=== PATIENT | male | born 1970 | race Caucasian/White ===

== ENCOUNTER 2018-02-13 18:49 | Emergency (ER) | payer OTHER ==
[2018-02-13] MEDS ORDERED: NORMAL SALINE 1,000 ML IV ONE ×2 (18:56→19:02)
[2018-02-13] MEDS ORDERED: MECLIZINE HCL 25 MG TABLET PO ONE ×2 (18:56→19:52)
[2018-02-13] MEDS ORDERED: chlorproMAZINE HCL 20 MG in NORMAL SALINE 50 ML IV ONE (19:08)
--- NOTE | 2018-02-13 19:08 | ERNOTE ---
Dizziness ER Record Date of Service: 02/13/18 Presenting Symptoms: dizziness Time Seen by Provider: 02/13/18 18:53 Source: patient Exam Limitations: no limitations Immunizations: IMMUNIZATION HX Immunizations Up to Date Yes Allergies/Adverse Reactions: Allergies Allergy/AdvReac Type Severity Reaction Status Date / Time Penicillins Allergy Verified 02/13/18 18:56 Home Medications: HOME MEDICATIONS NK [No Home Medication] 02/13/18 [Last Taken Unknown] - History of Present Illness Narrative: Pt. comes in with c/o dizziness for 2 hours that is uncontrollable and is causing severe, uncontrollable, vomiting as well. Pt. has had recent diarrhea for three days but denies any fever, SOB, CP, or alleviating factors but states taht movement exacerbates the pain. Timing and Duration: sudden onset, lasted greater than 3 hrs Noted on awakening:: No Severity: max: severe Severity: currently: severe Associated Symptoms: Present: nausea, vomiting, light headedness. Absent: hearing loss, ringing/roaring in ear, headache, weakness, numbness, sweating, sense of confusion Sense of movement: Present: none Decreased ability to stand/walk:: Present: cannot walk, cannot stand. Absent: weak, difficult Usually:: Present: walks w/o assistance Modifying Factors - (Improves): Reports: nothing Modifying Factors - (Worsens): Reports: changing position, movement of head Prior Treament: Denies: recently seen, treated by physician, recently hospitalized, similar symptoms before, currently on antibiotics Review of Systems - Review of Systems Constitutional: Present: no symptoms reported. Absent: fever, chills, weakness , fatigue, malaise EYE: Present: blurred vision, double vision, vision changes. Absent: eye pain, eye discharge ENT: Present: no symptoms reported. Absent: nose congestion, nasal drainage, sore throat Respiratory: Present: no symptoms reported. Absent: shortness of breath, cough , wheezing Cardiology: Present: no symptoms reported. Absent: chest pain, palpitations, edema Gastrointestinal/Abdominal: Present: nausea, vomiting, diarrhea. Absent: abdominal pain Genitourinary: Present: no symptoms reported. Absent: frequency, decreased urinary output Musculoskeletal: Present: no symptoms reported. Absent: back pain, neck pain, joint pain Skin: Present: no symptoms reported. Absent: rash, change in color Neurological: Present: dizziness/light-headedness, weakness. Absent: headache, numbness, tingling All Other Systems: All systems neg except as marked - Patient's Past Medical History Patient History - Medical: No pertinent hx Patient History - Cardiac/Respiratory: No pertinent hx Patient History - Cancer: No Hx of Cancer Patient History - Surgical Procedures: Back Surgery, Orthopedic Patient History - Other: None - Social History Living Situations: home Psych History: No pertinent hx Smoking Status: Never smoker Alcohol Use: occasionally Drug Use: none - Immunizations Immunizations Up to Date: Yes Physical Exam - Physical Exam General Appearance: Present: wd/wn, no apparent distress, lethargic Head Exam: Present: normal inspection, no evidence of injury, no tenderness w palpation Eye Exam: PERRL: bilateral, Abnormal EOM: bilateral - pt. unable to track eyes drift abnormally and not symmetrical Ears, Nose, Throat: Present: normal ENT inspection, normal pharynx Neck: Present: normal inspection, nontender, supple, full range of motion. Absent: lymphadenopathy (R), lymphadenopathy (L), tender lateral, tender posterior midline Respiratory: Present: no respiratory distress, normal breath sounds, no accessory muscle use, chest nontender, lungs clear. Absent: crackles, rales, rhonchi, wheezing Cardiovascular/Chest: Present: regular rate, rhythm, no murmur, normal peripheral pulses Gastrointestinal/Abdominal: Present: normal bowel sounds, nontender, nondistended, soft, no organomegaly Back Exam: Present: normal inspection Extremity Exam: Present: normal inspection Neurological Exam: Present: oriented, normal mood/affect, no motor/sensory deficits, other - unable to complete HINTS exam, Rhomberg, or [id number] due to severity of dizziness.. Absent: paint mixer machine II-XII nml as tested, normal cerebellar test, motor weakness Skin Exam: Present: normal color, warm/dry. Absent: pallor, skin rash ED Progress - Date and Time Seen: Date and Time: 02/13/18 21:[address] Perry and although infarct looks remote on CT and pt. has 4 /4 strength all extremities and has no difficulty with breathing, speaking, or cognition; pt. has uncontrollable vomiting and dizziness and his eyes are not tracking and pt. is very lethargic and does not have a hx of CVA...we are concerned that CVA is more recent and that he needs neurosurgery. 02/13/18 21:37 As this could be a posterior CVA or extension of a R temporal CVA contacted stroke team at [facility] per family request. 02/13/18 21:[address] Guillen who is concerned for cerebral artery occlusion vs aneurism as well as previously mentioned possible diagnosis and would like pt. to transfer by air to them but denies any further orders at this time. - Results and Orders Patient's Lab Results:: I have reviewed the patient's lab results. Results and Orders: Laboratory Results - last 24 hr 02/13/18 02/13/18 02/13/18 19:20 19:20 19:20 WBC 10.3 RBC 4.22 L Hgb 14.2 Hct 42.6 MCV 100.9 H MCH 33.6 H MCHC 33.3 RDW 12.3 Plt Count 348 MPV 8.7 Immature Gran % (Auto) 0.50 H Immature Gran # (Auto) 0.05 H Neutrophils % 79.3 H Lymphocytes % 13.0 L Monocytes % 5.7 Eosinophils % 1.1 Basophils % 0.4 Nucleated RBC % 0.0 Neutrophils # 8.2 H Lymphocytes # 1.34 L Monocytes # 0.6 Eosinophils # 0.1 Absolute Basophils 0.0 Sodium 142 Plasma Sodium 143 H Potassium 3.0 L Chloride 102 Carbon Dioxide 26.2 Anion Gap 16.8 H BUN 19 Creatinine 1.29 Est GFR (Non-Af Amer) 64 BUN/Creatinine Ratio 14.7 Random Glucose 146 H Calcium 9.1 Calcium Adj for Albumin 8.7 Total Bilirubin 0.2 AST 22 ALT 47 Alkaline Phosphatase 90 Ammonia Less than 17.0 Troponin I Total Protein 7.8 Albumin 4.1 TSH Ethyl Alcohol 7.0 02/13/18 19:50 WBC RBC Hgb Hct MCV MCH MCHC RDW Plt Count MPV Immature Gran % (Auto) Immature Gran # (Auto) Neutrophils % Lymphocytes % Monocytes % Eosinophils % Basophils % Nucleated RBC % Neutrophils # Lymphocytes # Monocytes # Eosinophils # Absolute Basophils Sodium Plasma Sodium Potassium Chloride Carbon Dioxide Anion Gap BUN Creatinine Est GFR (Non-Af Amer) BUN/Creatinine Ratio Random Glucose Calcium Calcium Adj for Albumin Total Bilirubin AST ALT Alkaline Phosphatase Ammonia Troponin I Less than 0.017 Total Protein Albumin TSH 2.008 Ethyl Alcohol - Vital Signs Patient's Vital Signs:: I have reviewed the patient's vital signs. Vital Signs: Vital Signs 02/13/18 02/13/18 18:51 19:01 Temperature 36.2 C L Pulse Rate 63 57 L Respiratory 16 14 Rate Blood Pressure 126/65 122/64 O2 Sat by Pulse 93 93 Oximetry - EKG EKG: NSR EKG read: Reviewed by me EKG Comments: Left axis deviation interp by Dr Perry - CT/Ultrasound CT/Ultrasound Narrative: CT head with remote area of infarct R temporal lobe. No evidence of intraparynchamal or acute infarct - Progress/Reassessment Chief Complaint: Dizziness Progress:: Unchanged Departure Clinical Impression: Cerebral artery occlusion, Dizziness Altered mental status Qualifiers: Altered mental status type: somnolence Qualified Code(s): R40.0 - Somnolence - Departure Disposition: Short Term Hospital Inpatient Condition: Serious
[2018-02-13 19:24] LABS: Hematocrit 42.6 % (42.0-52.0); Hemoglobin 14.2 gm/dL (13.5-18.0); Mean Cell Volume 100.9 fl (78-100); Mean Corpuscular Hemoglobin 33.6 pg (27-31); Mean Corpuscular Hgb Conc 33.3 g/dl (32-36); Mean Platelet Volume 8.7 fl (8-11.3); Neutrophil # 8.2 K/mm3 (1.3-6.0); Neutrophil % 79.3 % (42-75.0); Platelet Count 348 K/mm3 (150-450); Red Blood Count 4.22 M/mm3 (4.7-6.0); Red Cell Distribution Width 12.3 % (11.5-14.0); White Blood Count 10.3 K/mm3 (4.0-10.5)
[2018-02-13 19:38] LABS: Albumin * 4.1 gm/dl (3.4-5.0); BUN/Creatinine Ratio 14.7 (9.0-21.6); Bilirubin, Total 0.2 mg/dL (0.0-1.1); Ca. Corrected For Albumin 8.7 mg/dL (8.4-10.2); Calcium * 9.1 mg/dL (7.9-10.9); Total Protein 7.8 gm/dL (6.2-8.2)
[2018-02-13 19:42] LABS: Anion Gap 16.8 mmol/L (6.8-13.8); Carbon Dioxide 26.2 mmol/L (24-32.6)
[2018-02-13] MEDS ORDERED: MECLIZINE HCL 25 MG TABLET ONE (19:53)
[2018-02-13] MEDS ORDERED: POTASSIUM CHLORIDE 20 MEQ TABLET.SA PO ONE (20:04)
[2018-02-13 20:28] LABS: TSH * 2.008 uIU/mL (0.358-3.74); Troponin I Less than 0.017 ng/ml (0.00-0.10)
[2018-02-13] MEDS ORDERED: POTASSIUM CHLORIDE 20 MEQ TABLET.SA ONE (20:30)
[2018-02-13] MEDS ORDERED: ONDANSETRON HCL/PF 2 MG/ML VIAL IV ONE (20:37)
[2018-02-13] MEDS ORDERED: ONDANSETRON HCL/PF 2 MG/ML VIAL ONE (20:38)
[2018-02-13 21:53] LABS: Urine Bilirubin Negative (NEGATIVE); Urine Ketone Negative (NEGATIVE); Urine Nitrite Negative (NEGATIVE); Urine Protein 15 mg/dL (NEGATIVE); Urine Urobilinogen Normal (NORMAL); Urine pH 6.5 pH (5.0-7.0)
[2018-02-13] MEDS ORDERED: POTASSIUM CHLORIDE IN WATER 100 ML IV SCH (22:00)
[2018-02-13 22:03] LABS: Urine Appearance Clear (CLEAR); Urine Bacteria TRACE; Urine Blood 5 /ul (NEGATIVE); Urine Color Yellow; Urine RBC None Seen /hpf (0-5); Urine WBC TRACE /hpf (0-5)
[2018-02-13 22:16] LABS: Cocaine Ur Negative (NEGATIVE); Urine Barbiturate Negative (NEGATIVE); Urine Benzodiazepines Negative (NEGATIVE); Urine Opiates Negative (NEGATIVE); Urine PCP Negative (NEGATIVE); Urine THC Negative (NEGATIVE)
[2018-02-13 23:25] VITALS: BP 131/82
== END 2018-02-13 22:52 | disposition short-term general hospital (02) ==
LOC: ER 18:49
CPT/HCPCS: 36415; 70450; 80053; 80307; 80320; 81001; 82140; 84443; 84484; 85025; 93005; 96361; 96365; 96367; 96375; 99285; G0479; G0481; J2405

== ENCOUNTER 2020-05-16 20:45 | Inpatient (IN) ==
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
[2020-05-16 21:06] LABS: Hematocrit 44.2 % (42.0-52.0); Hemoglobin 14.4 gm/dL (13.5-18.0); Mean Cell Volume 100.2 fl (78-100); Mean Corpuscular Hemoglobin 32.7 pg (27-31); Mean Corpuscular Hgb Conc 32.6 g/dl (32-36); Mean Platelet Volume 9.3 fl (8-11.3); Neutrophil # 4.2 K/mm3 (1.3-6.0); Neutrophil % 62.6 % (42-75.0); Platelet Count 292 K/mm3 (150-450); Red Blood Count 4.41 M/mm3 (4.7-6.0); Red Cell Distribution Width 11.8 % (11.5-14.0); White Blood Count 6.8 K/mm3 (4.0-10.5)
[2020-05-16 21:27] LABS: Albumin * 3.6 gm/dl (3.4-5.0); Anion Gap 12.9 mmol/L (6.8-13.8); BUN/Creatinine Ratio 10.6 (9.0-21.6); Bilirubin, Total 0.5 mg/dL (0.0-1.1); Ca. Corrected For Albumin 9.3 mg/dL (8.4-10.2); Calcium * 9.3 mg/dL (7.9-10.9); Carbon Dioxide 27.3 mmol/L (24-32.6); Potassium 3.2 mmol/L (3.4-4.6); Total Protein 7.8 gm/dL (6.2-8.2)
[2020-05-16] MEDS ORDERED: ENOXAPARIN SODIUM 100 MG/ML SYRG SC ONE (23:41)
[2020-05-16] MEDS ORDERED: ENOXAPARIN SODIUM 30 MG/0.3 ML SYRG SC ONE (23:42)
[2020-05-17] MEDS ORDERED: ENOXAPARIN SODIUM 100 MG/ML SYRG SC SCH (09:00)
[2020-05-17] MEDS: ENOXAPARIN SODIUM 60 MG/0.6 ML SYRG SC SCH ×2 (09:16→20:22)
[2020-05-17] MEDS: FLUoxetine HCL 20 MG CAPSULE PO SCH (09:16)
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
[2020-05-17] MEDS: ACETAMINOPHEN 325 MG TABLET PO PRN (17:03)
[2020-05-18] MEDS: ACETAMINOPHEN 325 MG TABLET PO PRN ×5 (01:37→22:05)
[2020-05-18 07:22] LABS: Hemoglobin 13.7 gm/dL (13.5-18.0); Mean Cell Volume 99.3 fl (78-100); Mean Corpuscular Hemoglobin 32.4 pg (27-31); Mean Corpuscular Hgb Conc 32.6 g/dl (32-36); Mean Platelet Volume 9.1 fl (8-11.3); Neutrophil % 68.3 % (42-75.0); Platelet Count 333 K/mm3 (150-450); Red Blood Count 4.23 M/mm3 (4.7-6.0); Red Cell Distribution Width 11.7 % (11.5-14.0); White Blood Count 10.2 K/mm3 (4.0-10.5)
[2020-05-18 07:41] LABS: BUN/Creatinine Ratio 8.7 (9.0-21.6); Carbon Dioxide 28.9 mmol/L (24-32.6); Potassium 3.6 mmol/L (3.4-4.6)
[2020-05-18 07:42] LABS: Albumin * 3.1 gm/dl (3.4-5.0); Anion Gap 12.7 mmol/L (6.8-13.8); Ca. Corrected For Albumin 9.2 mg/dL (8.4-10.2); Calcium * 8.8 mg/dL (7.9-10.9); Total Protein 7.3 gm/dL (6.2-8.2)
[2020-05-18] MEDS: FLUoxetine HCL 20 MG CAPSULE PO SCH (08:38)
[2020-05-18] MEDS: ENOXAPARIN SODIUM 60 MG/0.6 ML SYRG SC SCH ×2 (08:39→21:14)
[2020-05-18 11:25] LABS: Urine Bilirubin Negative (NEGATIVE); Urine Blood 250 /ul (NEGATIVE); Urine Ketone Negative (NEGATIVE); Urine Nitrite Negative (NEGATIVE); Urine Protein 30 mg/dL (NEGATIVE); Urine Specific Gravity <=1.005 SP.GR. (1.005-1.030); Urine pH 6.5 pH (5.0-7.0)
[2020-05-18 11:41] LABS: Urine Appearance Slightly Cloudy (CLEAR); Urine Color Yellow
[2020-05-18 11:42] LABS: Urine RBC >50 /hpf (0-5); Urine WBC TRACE /hpf (0-5)
[2020-05-18 11:43] LABS: Urine Bacteria 1+
--- NOTE | 2020-05-18 13:11 | PN ---
Subjective - Date and Time Seen Date: 05/18/20 Time: 13:00 Subjective Narrative: Angel Mills has had an uneventful night. Unfortunately he continues to desaturate with minor exertion such as standing and walking a few steps. Complains of difficulty taking a deep breath. He also spiked fevers couple times earlier this morning. A CBC shows white count has climbed to 10,800 up from 4900. There is a predominance of neutrophils. The urinalysis has moderate amount of blood and some urobilinogen and 1+ bacteria. Chemistries show liver enzymes are elevated but the bilirubin is normal. Blood and urine cultures have been set up. I am considering changing him from Lovenox to Eliquis or Xarelto. His chest x-ray shows the patchy infiltrates have improved. His respiratory difficulties are most likely from the multi focal emboli to the lungs. Objective - Review of Systems Generalized/Overall Review: Reports: Weakness, Fatigue EENTM: Reports: No Symptoms Reported Respiratory: Reports: Cough, Shortness of Breath, Other - Difficulty taking a deep breath Cardiac: Reports: No Symptoms Reported. Denies: Chest Pain Abdominal: Reports: No Symptoms Reported Genitourinary Symptoms: Reports: No Symptoms Reported Musculoskeletal Complaints: Reports: No Symptoms Reported Neurological: Reports: No Symptoms Reported Skin: Reports: No Symptoms Reported Endocrine: Reports: No Symptoms Reported - Vitals Vitals: Last Vital Signs Temp 37.6 C 05/18/20 10:30 Pulse 85 05/18/20 10:30 Resp 18 05/18/20 10:30 BP 118/65 05/18/20 10:30 Pulse Ox 98 05/18/20 10:30 - Abnormal Lab Findings Abnormal Lab Findings: Abnormal Lab Results 05/18/20 05/18/20 05/18/20 Range/Units 07:00 07:00 11:05 RBC 4.23 L (4.7-6.0) M/mm3 MCH 32.4 H (27-31) pg Immature Gran # (Auto) 0.04 H (0.000-0.0310) K/mm3 Lymphocytes % 18.4 L (20-51) % Monocytes % 11.6 H (0.0-9) % Neutrophils # 7.0 H (1.3-6.0) K/mm3 Monocytes # 1.2 H (0.0-1.0) k/mm3 BUN/Creatinine Ratio 8.7 L (9.0-21.6) AST 59 H (0-48) U/L ALT 92 H (19-67) U/L Alkaline Phosphatase 245 H (50-170) U/L Albumin 3.1 L (3.4-5.0) gm/dl Urine Protein 30 H (NEGATIVE) mg/dL Urine Blood 250 H (NEGATIVE) /ul Urine Urobilinogen 2.0 H (NORMAL) EU/dl Urine RBC >50 H (0-5) /hpf Urine Bacteria 1+ H (NONE) - EKG/Xray Findings EKG: NSR, other - EKG now appears normal EKG read: Interp. by me XRAY: chest Interpretation: Reviewed by me - Exam Constitutional: Present: Alert, Oriented x3, Cooperative, Well developed, Well nourished, No distress ENT Exam: Present: normal ENT inspection, hearing grossly normal, pharynx normal, TMs normal Neck: Present: non-tender, full range of motion, supple Breasts: Present: Exam deferred Respiratory: Present: chest non-tender, decreased breath sounds, expiration (prolonged). Absent: wheezing Cardiovascular/Chest: Present: normal peripheral pulses, regular rate, rhythm, no chest tenderness, no edema, no gallop, no JVD, no murmur, no rub Abdomen: Present: Normal bowel sounds, soft, nontender, nondistended, no rebound tenderness, no hepatospenomegaly, no masses /Rectal: Present: Exam deferred Extremity: Present: normal range of motion, non-tender, normal inspection, no pedal edema, no calf tenderness, normal capillary refill Skin Exam: Present: normal color, warm/dry, no cyanosis Lymphatic: Present: no adenopathy Neurologic: Present: colorer II-XII nml as tested Appearance: Present: appropriate appearance Eye contact: Present: cooperative, good eye contact, normal speech, avoids eye contact Thoughts: Present: normal thought pattern, no apparent hallucination Assessment/Plan Plan Narrative: 1. Consider changing to Eliquis or Xarelto 2. Add Combivent inhaler 1 puff 4 times daily 3. Start O2 weaning as tolerated with keeping O2 sats equal to or greater than 92% 4. Progress activity as tolerated 5. Start Levaquin 500 mg daily 6. Urine and blood cultures have been set up 7. Repeat morning lab - Problems/Diagnosis (1) COVID-19 Problem: Acute (2) Pulmonary embolism Problem: Acute Qualifiers: Pulmonary embolism type: multiple subsegmental (without acute cor pulmonale) Qualified Code(s): I26.94 - Multiple subsegmental pulmonary emboli without acute cor pulmonale (3) Febrile illness, acute Problem: Acute (4) Abnormal liver function tests Problem: Acute
[2020-05-18] MEDS: LEVOFLOXACIN 750 MG TABLET PO SCH (13:21)
[2020-05-18] MEDS: IPRATROPIUM/ALBUTEROL SULFATE 120 PUFF INHALER IH SCH ×2 (13:22→19:20)
[2020-05-18] MEDS ORDERED: INHALER, ASSIST DEVICES 1 EACH SPACER MC ONE (13:30)
[2020-05-19] MEDS: IPRATROPIUM/ALBUTEROL SULFATE 120 PUFF INHALER IH SCH ×4 (00:51→19:20)
[2020-05-19 07:09] LABS: Hemoglobin 13.5 gm/dL (13.5-18.0); Mean Cell Volume 98.6 fl (78-100); Mean Corpuscular Hemoglobin 31.7 pg (27-31); Mean Corpuscular Hgb Conc 32.1 g/dl (32-36); Mean Platelet Volume 9.3 fl (8-11.3); Neutrophil # 8.4 K/mm3 (1.3-6.0); Neutrophil % 74.5 % (42-75.0); Platelet Count 353 K/mm3 (150-450); Red Blood Count 4.26 M/mm3 (4.7-6.0); Red Cell Distribution Width 11.6 % (11.5-14.0); White Blood Count 11.2 K/mm3 (4.0-10.5)
[2020-05-19 07:18] LABS: Albumin * 2.8 gm/dl (3.4-5.0); BUN/Creatinine Ratio 7.9 (9.0-21.6); Bilirubin, Total 1.1 mg/dL (0.0-1.1); Ca. Corrected For Albumin 9.4 mg/dL (8.4-10.2); Calcium * 8.8 mg/dL (7.9-10.9); Potassium 3.5 mmol/L (3.4-4.6); Total Protein 7.4 gm/dL (6.2-8.2)
[2020-05-19] MEDS: ACETAMINOPHEN 325 MG TABLET PO PRN ×2 (07:33→17:35)
[2020-05-19 07:49] LABS: Anion Gap 15.9 mmol/L (6.8-13.8); Carbon Dioxide 24.6 mmol/L (24-32.6)
[2020-05-19] MEDS: FLUoxetine HCL 20 MG CAPSULE PO SCH (09:06)
[2020-05-19] MEDS: ENOXAPARIN SODIUM 60 MG/0.6 ML SYRG SC SCH (09:07)
[2020-05-19] MEDS: LEVOFLOXACIN 750 MG TABLET PO SCH (10:13)
[2020-05-19] MEDS ORDERED: BISACODYL 5 MG TABLET.DR PO ONE ×2 (17:51→19:17)
[2020-05-19] MEDS ORDERED: FLUoxetine HCL 20 MG CAPSULE PO ONE (18:19)
--- NOTE | 2020-05-19 18:36 | PN ---
Subjective - Date and Time Seen Date: 05/19/20 Time: 17:45 Subjective Narrative: Demar had a good night and slept fairly well. This morning he felt well enough to get up and actually took a shower with his oxygen on and did fairly well with that. He has had a good day until this evening when he spiked a low-grade temperature and is feeling flushed and not feeling well at all. We started incentive spirometry last night and it makes him gag some but I think he should continue using it because it forces his lungs to expand. It is essentially the only difference between yesterday and today. This morning's lab work shows a white count has gone up a little to 14,300 but the differential is unremarkable. Chemistries are unremarkable. Sed rate was 99. There was a question about why I started levofloxacin. He is has started spiking fevers, he has an elevating white count which is up to 11,200 this morning. There is a predominance of leukocytes. The chest x-ray had shown some interval improvement. The urinalysis had blood and some white cells present. U rine and blood cultures have been set up and to this point there is no growth. He is now 2 weeks out from being diagnosed with COVID-19 and so I elected to start a broad-spectrum antibiotic. Objective - Review of Systems Generalized/Overall Review: Reports: Weakness, Fever, Malaise EENTM: Reports: No Symptoms Reported Respiratory: Reports: Cough, Shortness of Breath Cardiac: Reports: Chest Pain Abdominal: Reports: No Symptoms Reported Genitourinary Symptoms: Reports: No Symptoms Reported Musculoskeletal Complaints: Reports: No Symptoms Reported Neurological: Reports: No Symptoms Reported Skin: Reports: No Symptoms Reported Endocrine: Reports: No Symptoms Reported - Vitals Vitals: Last Vital Signs Temp 36.9 C 05/19/20 13:44 Pulse 93 05/19/20 14:00 Resp 18 05/19/20 13:44 BP 136/89 05/19/20 13:44 Pulse Ox 99 05/19/20 13:44 - Abnormal Lab Findings Abnormal Lab Findings: Abnormal Lab Results 05/19/20 05/19/20 05/19/20 Range/Units 06:57 06:57 06:57 WBC 11.2 H (4.0-10.5) K/mm3 RBC 4.26 L (4.7-6.0) M/mm3 MCH 31.7 H (27-31) pg Immature Gran % (Auto) 0.60 H (0.001-0.429) % Immature Gran # (Auto) 0.07 H (0.000-0.0310) K/mm3 Lymphocytes % 12.9 L (20-51) % Monocytes % 11.1 H (0.0-9) % Neutrophils # 8.4 H (1.3-6.0) K/mm3 Lymphocytes # 1.45 L (1.5-3.5) k/mm3 Monocytes # 1.3 H (0.0-1.0) k/mm3 ESR 99 H (0-10) mm/hr Anion Gap 15.9 H (6.8-13.8) mmol/L BUN/Creatinine Ratio 7.9 L (9.0-21.6) AST 98 H (0-48) U/L ALT 172 H (19-67) U/L Alkaline Phosphatase 335 H (50-170) U/L Albumin 2.8 L (3.4-5.0) gm/dl - EKG/Xray Findings EKG: NSR, no ST T wave changes EKG read: Interp. by me XRAY: chest Interpretation: Reviewed by me - Exam Constitutional: Present: Alert, Oriented x3, Cooperative, Well developed, Well nourished, Mild distress ENT Exam: Present: normal ENT inspection, hearing grossly normal, pharynx normal, TMs normal Neck: Present: non-tender, full range of motion, supple, normal inspection Breasts: Present: Exam deferred Respiratory: Present: chest non-tender, lungs clear, normal breath sounds, no respiratory distress, no accessory muscle use Cardiovascular/Chest: Present: normal peripheral pulses, regular rate, rhythm, no chest tenderness, no edema, no gallop, no JVD, no murmur, no rub Abdomen: Present: Normal bowel sounds, soft, nontender, nondistended, no rebound tenderness, no hepatospenomegaly, no masses /Rectal: Present: Exam deferred Extremity: Present: normal range of motion, non-tender, normal inspection, no pedal edema, no calf tenderness, normal capillary refill Skin Exam: Present: normal color, warm/dry, no cyanosis Lymphatic: Present: no adenopathy Neurologic: Present: injury/safety hazard assessment II-XII nml as tested, normal cerebellar test, no motor/sensory deficits, alert, normal mood/affect, oriented x 3 Appearance: Present: appropriate appearance, appropriate insight, neat, no memory impairment Eye contact: Present: cooperative, good eye contact Thoughts: Present: normal thought pattern, no apparent hallucination Assessment/Plan Plan Narrative: 1. Dulcolax 10 mg 1 p.o. now 2. Start a apixaban 5 mg twice daily starting tomorrow morning and I will DC the enoxaparin 3. Start Solu-Medrol 80 mg every 6 hours IV piggyback 4. morning lab to include CBC and CMP 5. Twelve-lead EKG now as well as a serum troponin. Note: I reviewed the twelve-lead EKG which is unchanged from this morning and there is no evidence of any acute injury or ischemic pattern. 6. Continue incentive spirometry - Problems/Diagnosis (1) COVID-19 Problem: Acute (2) Pulmonary embolism Problem: Acute Qualifiers: Pulmonary embolism type: multiple subsegmental (without acute cor pulmonale) Qualified Code(s): I26.94 - Multiple subsegmental pulmonary emboli without acute cor pulmonale (3) Febrile illness, acute Problem: Acute (4) Abnormal liver function tests Problem: Acute (5) Chest discomfort Problem: Acute (6) Constipation Problem: Acute Qualifiers: Constipation type: slow transit constipation Qualified Code(s): K59.01 - Slow transit constipation
[2020-05-19] MEDS: METHYLPREDNISOLONE SOD SUCC/PF 40 MG/ML VIAL IV SCH (19:18)
[2020-05-19] MEDS ORDERED: APIXABAN 5 MG TABLET PO SCH ×2 (21:00)
[2020-05-20] MEDS: IPRATROPIUM/ALBUTEROL SULFATE 120 PUFF INHALER IH SCH ×4 (01:24→18:16)
[2020-05-20] MEDS: METHYLPREDNISOLONE SOD SUCC/PF 40 MG/ML VIAL IV SCH ×4 (01:24→18:15)
[2020-05-20 06:45] LABS: Hematocrit 44.8 % (42.0-52.0); Hemoglobin 14.8 gm/dL (13.5-18.0); Mean Cell Volume 97.8 fl (78-100); Mean Corpuscular Hemoglobin 32.3 pg (27-31); Mean Platelet Volume 9.3 fl (8-11.3); Neutrophil # 11.3 K/mm3 (1.3-6.0); Neutrophil % 88.6 % (42-75.0); Platelet Count 421 K/mm3 (150-450); Red Blood Count 4.58 M/mm3 (4.7-6.0); Red Cell Distribution Width 11.5 % (11.5-14.0); White Blood Count 12.7 K/mm3 (4.0-10.5)
[2020-05-20 07:03] LABS: Anion Gap 16.8 mmol/L (6.8-13.8); BUN/Creatinine Ratio 10.7 (9.0-21.6); Bilirubin, Total 0.9 mg/dL (0.0-1.1); Ca. Corrected For Albumin 10.3 mg/dL (8.4-10.2); Calcium * 9.8 mg/dL (7.9-10.9); Potassium 3.8 mmol/L (3.4-4.6); Total Protein 8.5 gm/dL (6.2-8.2)
[2020-05-20] MEDS: FLUoxetine HCL 20 MG CAPSULE PO SCH (09:18)
[2020-05-20] MEDS: APIXABAN 5 MG TABLET PO SCH ×2 (09:18→20:19)
[2020-05-20] MEDS: LEVOFLOXACIN 500 MG TABLET PO SCH (10:20)
[2020-05-20] MEDS ORDERED: ERGOCALCIFEROL 50000 UNIT TABLET PO SCH (13:00)
--- NOTE | 2020-05-20 13:15 | PN ---
Subjective - Date and Time Seen Date: 05/20/20 Time: 10:15 Subjective Narrative: Demar is feeling much better this morning. The chest pressure and back discomfort are now gone. He is greatly relieved. His fever is down. I believe the steroids have really helped him from an inflammatory perspective. He had a good appetite this morning. He is ready to get up and have a shower. His oxygen has been weaned down to 1 L and he is maintaining 95% O2 sat. We will try to wean him off of oxygen this afternoon. Lab: White count is 12,700, up some from steroids, and the hemoglobin is 14.8 g with hematocrit of 44.8%. Platelets are normal at 421,000. His sed rate yest erday was 99. Chemistries: E lites are normal. EGFR is 74, glucose is 166 (up from steroids), total bilirubin is normal at 0.9. The AST has dropped to 85 from 98 yesterday, the ALT has increased to 202 from 172 yesterday. The alkaline phosphatase has continued to rise for the fourth day in a row and is now 395. Yesterday was 335, the day before 245, and on admission was 231. The albumin is up slightly to 3.0 from 2.8 yesterday. Vital signs show temperature 36.5, pulse of 102, blood pressure 135/86, respiratory 16 and unlabored, his O2 sat is 95%, and he has not been weighed since admission. In my reading zinc, vitamin C, vitamin D, Pepcid, and N-acetylcholine have been recommended for treatment of COVID-19 infected victims. Another study shows that the i n-acetylcholine has not been studied enough to know that it is a benefit or not. I will start the other supplements but not this 1. He is obviously feeling much better. His color is much improved and he is not nearly as erythematous as he was yesterday. He has had no more fever reported. Objective - Review of Systems Generalized/Overall Review: Reports: Weakness, Fever - Seems to be resolved now, Malaise EENTM: Reports: No Symptoms Reported Respiratory: Reports: Cough, Shortness of Breath Cardiac: Reports: Chest Pain - Resolved with steroids Abdominal: Reports: No Symptoms Reported Genitourinary Symptoms: Reports: No Symptoms Reported Musculoskeletal Complaints: Reports: No Symptoms Reported Neurological: Reports: No Symptoms Reported Skin: Reports: No Symptoms Reported Endocrine: Reports: No Symptoms Reported - Vitals Vitals: Last Vital Signs Temp 36.6 C 05/20/20 10:21 Pulse 100 05/20/20 10:30 Resp 16 05/20/20 10:21 BP 130/64 05/20/20 10:21 Pulse Ox 95 05/20/20 10:21 - Abnormal Lab Findings Abnormal Lab Findings: Abnormal Lab Results 05/20/20 05/20/20 Range/Units 06:40 06:40 WBC 12.7 H (4.0-10.5) K/mm3 RBC 4.58 L (4.7-6.0) M/mm3 MCH 32.3 H (27-31) pg Immature Gran % (Auto) 0.60 H (0.001-0.429) % Immature Gran # (Auto) 0.08 H (0.000-0.0310) K/mm3 Neutrophils % 88.6 H (42-75.0) % Lymphocytes % 7.8 L (20-51) % Neutrophils # 11.3 H (1.3-6.0) K/mm3 Lymphocytes # 0.99 L (1.5-3.5) k/mm3 Anion Gap 16.8 H (6.8-13.8) mmol/L Random Glucose 166 H D (70-110) mg/dL Calcium Adj for Albumin 10.3 H (8.4-10.2) mg/dL AST 85 H (0-48) U/L ALT 202 H (19-67) U/L Alkaline Phosphatase 395 H (50-170) U/L Total Protein 8.5 H (6.2-8.2) gm/dL Albumin 3.0 L (3.4-5.0) gm/dl - Exam Constitutional: Present: Alert, Oriented x3, Cooperative, Well developed, Well nourished, No distress ENT Exam: Present: normal ENT inspection, hearing grossly normal, pharynx normal, TMs normal Neck: Present: non-tender, full range of motion Breasts: Present: Exam deferred Respiratory: Present: chest non-tender, lungs clear, normal breath sounds, no respiratory distress, no accessory muscle use Cardiovascular/Chest: Present: normal peripheral pulses, regular rate, rhythm, no chest tenderness, no edema, no gallop, no JVD, no murmur, no rub Abdomen: Present: Normal bowel sounds, soft, nontender, nondistended, no rebound tenderness, no hepatospenomegaly, no masses /Rectal: Present: Exam deferred Extremity: Present: normal range of motion, non-tender, normal inspection, no pedal edema, no calf tenderness, normal capillary refill Skin Exam: Present: normal color, warm/dry, no cyanosis Lymphatic: Present: no adenopathy 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 Repeat morning lab with CBC, CMP, and sed rate 2. Repeat chest x-ray tomorrow morning 3. Start zinc, vitamin D, vitamin C, and Pepcid 4. Continue IV steroids 5. Possibly home tomorrow. - Problems/Diagnosis (1) COVID-19 Problem: Acute (2) Pulmonary embolism Problem: Acute Qualifiers: Pulmonary embolism type: multiple subsegmental (without acute cor pulmonale) Qualified Code(s): I26.94 - Multiple subsegmental pulmonary emboli without acute cor pulmonale (3) Febrile illness, acute Problem: Acute (4) Abnormal liver function tests Problem: Acute (5) Chest discomfort Problem: Acute (6) Constipation Problem: Acute Qualifiers: Constipation type: slow transit constipation Qualified Code(s): K59.01 - Slow transit constipation
[2020-05-20] MEDS: ASCORBIC ACID 500 MG TABLET PO SCH ×3 (13:18→20:21)
[2020-05-20] MEDS: FAMOTIDINE 20 MG TABLET PO SCH ×2 (13:18→20:20)
[2020-05-20] MEDS: ZINC SULFATE 220 MG CAPSULE PO SCH (13:19)
[2020-05-21] MEDS: METHYLPREDNISOLONE SOD SUCC/PF 40 MG/ML VIAL IV SCH ×3 (00:36→13:25)
[2020-05-21] MEDS: IPRATROPIUM/ALBUTEROL SULFATE 120 PUFF INHALER IH SCH ×3 (00:36→13:31)
[2020-05-21] MEDS: ASCORBIC ACID 500 MG TABLET PO SCH ×2 (08:47→13:31)
[2020-05-21] MEDS: FLUoxetine HCL 20 MG CAPSULE PO SCH (08:47)
[2020-05-21] MEDS: ZINC SULFATE 220 MG CAPSULE PO SCH (08:48)
[2020-05-21] MEDS: FAMOTIDINE 20 MG TABLET PO SCH (08:48)
[2020-05-21] MEDS: APIXABAN 5 MG TABLET PO SCH (08:52)
[2020-05-21] MEDS: LEVOFLOXACIN 500 MG TABLET PO SCH (11:06)
--- NOTE | 2020-05-21 12:12 | DS ---
(1) COVID-19 Problem: Acute (2) Pulmonary embolism Problem: Acute Qualifiers: Pulmonary embolism type: multiple subsegmental (without acute cor pulmonale) Qualified Code(s): I26.94 - Multiple subsegmental pulmonary emboli without acute cor pulmonale (3) Febrile illness, acute Problem: Resolved (4) Abnormal liver function tests Problem: Acute (5) Chest discomfort Problem: Resolved (6) Constipation Problem: Acute Qualifiers: Constipation type: slow transit constipation Qualified Code(s): K59.01 - Slow transit constipation Date of Discharge:: 05/21/20 Hospital Course: Angel Mills is a 50-year-old male patient of mine who developed chest pain and shortness of breath And was subsequently admitted.. He tested positive for COVID-19 approximately 12 days before presenting to the emergency room. He was treated with supportive care with oxygen. Sed rate revealed marked inflammation at 99 and I started him on steroids at that point. He also spiked fevers again and then had an increase in his white count 2 days in a row. I did blood cultures and urine cultures both of which have been no growth. Empirically I did start him on levofloxacin 500 mg daily. After just 2 doses of steroids the chest pressure that was radiating through to the back was resolved. He has had no further chest discomfort in the past 24 hours. He is oxygenating better. Saturations were as low as 85% in the ER and after admission but we were able to keep his oxygen level above 92% on 2 L nasal cannula for the most part. Last night his O2 sats would drop to 89 to 91% while sleeping but while awake he is been in the 95 to 98% range. He has a known history of obstructive sleep apnea. He has had a CPAP prescribed in the past but because he changes positions so frequently from orthopedic reasons he kept knocking the mask off and finally just gave up trying to use it. I suspect that 89-91 is his baseline while sleeping without oxygen at home. After completely recovering from the COVID 19 infection I will consider getting a home overnight pulse ox study done. I also started him on Combivent inhaler which has been helpful. His liver enzymes have been climbing and the reason is unknown at this point. I assume that is from inflammation from the COVID 19 as I do not have a better reason for at this time. Procedures Performed: none Results and Findings: Pending Mircobiology Results 05/18/20 09:03 Blood Blood Culture - Preliminary NO GROWTH AFTER 48 HOURS 05/18/20 07:00 Blood Blood Culture - Preliminary NO GROWTH AFTER 48 HOURS 05/16/20 21:30 Blood Blood Culture - Preliminary NO GROWTH AFTER 48 HOURS 05/16/20 21:00 Blood Blood Culture - Preliminary NO GROWTH AFTER 48 HOURS Lab Pending Results 05/16/20 21:00: WBC 6.8, RBC 4.41 L, Hgb 14.4, Hct 44.2, MCV 100.2 H, MCH 32.7 H, MCHC 32.6, RDW 11.8, Plt Count 292, MPV 9.3, Immature Gran % (Auto) 0.40, Immature Gran # (Auto) 0.03, Neutrophils % 62.6, Lymphocytes % 24.7, Monocytes % 10.3 H, Eosinophils % 1.6, Basophils % 0.4, Nucleated RBC % 0.0, Neutrophils # 4.2, Lymphocytes # 1.67, Monocytes # 0.7, Eosinophils # 0.1, Absolute Basophils 0.0 05/16/20 21:00: Sodium 139, Plasma Sodium 139, Potassium 3.2 L, Chloride 102, Carbon Dioxide 27.3, Anion Gap 12.9, BUN 12, Creatinine 1.13, Est GFR (Non-Af Amer) 73 D, BUN/Creatinine Ratio 10.6, Random Glucose 118 H, Calcium 9.3, Calcium Adj for Albumin 9.3, Total Bilirubin 0.5, AST 45, ALT 74 H, Alkaline Phosphatase 231 H, B-Natriuretic Peptide 106, Total Protein 7.8, Albumin 3.6 05/16/20 21:00: D-Dimer Greater than 10.00 H 05/16/20 21:00: Lactic Acid, Venous 2.1 H 05/16/20 21:10: pCO2 34.5 L, pO2 71.6 L, HCO3 24.3, Total CO2 25.4 H, Base Excess 1.1, ABG pH 7.47 H, ABG O2 Sat (Measured) 95.4 05/16/20 23:56: Lactic Acid, Venous 1.2 05/18/20 07:00: WBC 10.2 D, RBC 4.23 L, Hgb 13.7, Hct 42.0, MCV 99.3, MCH 32.4 H, MCHC 32.6, RDW 11.7, Plt Count 333, MPV 9.1, Immature Gran % (Auto) 0.40, Immature Gran # (Auto) 0.04 H, Neutrophils % 68.3, Lymphocytes % 18.4 L, Monoc ytes % 11.6 H, Eosinophils % 1.0, Basophils % 0.3, Nucleated RBC % 0.0, Neutrophils # 7.0 H, Lymphocytes # 1.88, Monocytes # 1.2 H, Eosinophils # 0.1, Absolute Basophils 0.0 05/18/20 07:00: Sodium 138, Plasma Sodium 138, Potassium 3.6, Chloride 100, Carbon Dioxide 28.9, Anion Gap 12.7, BUN 8, Creatinine 0.92, Est GFR (Non-Af Amer) 93 D, BUN/Creatinine Ratio 8.7 L, Random Glucose 110, Calcium 8.8, Calcium Adj for Albumin 9.2, Total Bilirubin 1.0, AST 59 H, ALT 92 H, Alkaline Phosphatase 245 H, Total Protein 7.3, Albumin 3.1 L 05/18/20 11:05: Urine Color Yellow, Urine Appearance Slightly cloudy, Urine pH 6.5, Ur Specific Protem <=1.005, Urine Protein 30 H, Urine Glucose (UA) Negative, Urine Ketones Negative, Urine Blood 250 H, Urine Nitrate Negative, Urine Bilirubin Negative, Prot Sulfosalicylic Acd 1+, Urine Urobilinogen 2.0 H, Ur Leukocyte Esterase Negative, Urine RBC >50 H, Urine WBC Trace, Ur Epithelial Cells 0-5, Urine Bacteria 1+ H 05/19/20 06:57: WBC 11.2 H, RBC 4.26 L, Hgb 13.5, Hct 42.0, MCV 98.6, MCH 31.7 H, MCHC 32.1, RDW 11.6, Plt Count 353, MPV 9.3, Immature Gran % (Auto) 0.60 H, Immature Gran # (Auto) 0.07 H, Neutrophils % 74.5, Lymphocytes % 12.9 L, Monocytes % 11.1 H, Eosinophils % 0.5, Basophils % 0.4, Nucleated RBC % 0.0, Neutrophils # 8.4 H, Lymphocytes # 1.45 L, Monocytes # 1.3 H, Eosinophils # 0.1, Absolute Basophils 0.0 05/19/20 06:57: ESR 99 H 05/19/20 06:57: Sodium 136, Plasma Sodium 136, Potassium 3.5, Chloride 99, Carbon Dioxide 24.6, Anion Gap 15.9 H, BUN 8, Creatinine 1.01, Est GFR (Non-Af Amer) 83, BUN/Creatinine Ratio 7.9 L, Random Glucose 99, Calcium 8.8, Calcium Adj for Albumin 9.4, Total Bilirubin 1.1, AST 98 H, ALT 172 H, Alkaline Phosphatase 335 H, Total Protein 7.4, Albumin 2.8 L 05/19/20 18:10: Troponin I Less than 0.017 05/19/20 23:56: Troponin I Less than 0.017 05/20/20 06:40: WBC 12.7 H, RBC 4.58 L, Hgb 14.8, Hct 44.8, MCV 97.8, MCH 32.3 H, MCHC 33.0, RDW 11.5, Plt Count 421, MPV 9.3, Immature Gran % (Auto) 0.60 H, Immature Gran # (Auto) 0.08 H, Neutrophils % 88.6 H, Lymphocytes % 7.8 L, Monocytes % 2.9, Eosinophils % 0.0, Basophils % 0.1, Nucleated RBC % 0.0, Neutrophils # 11.3 H, Lymphocytes # 0.99 L, Monocytes # 0.4, Eosinophils # 0.0, Absolute Basophils 0.0 05/20/20 06:40: Sodium 135, Plasma Sodium 136, Potassium 3.8, Chloride 98, Carbon Dioxide 24.0, Anion Gap 16.8 H, BUN 12, Creatinine 1.12, Est GFR (Non-Af Amer) 74, BUN/Creatinine Ratio 10.7, Random Glucose 166 H D, Calcium 9.8, Calcium Adj for Albumin 10.3 H, Total Bilirubin 0.9, AST 85 H, ALT 202 H, Alkaline Phosphatase 395 H, Total Protein 8.5 H, Albumin 3.0 L Discharge Location: Home Disposition: Home self-care Condition: Good Face to Face Encounter completed per [facility] Guidelines: No Discharge Activity: Activity as tolerated Discharge Diet: General/regular food Referrals: Beto Weber DO [Primary Care Provider] - Additional Patient Instructions (free text): See Dr. Weber in the office in 2 weeks. He is to be off work until then. Prescriptions (Any new or edited meds): Ergocalciferol [Calciferol] 50,000 units PO Q7D #14 tab Transmission Status: Pending to [facility] Ipratropium/Albuterol Sulfate [Combivent Respimat 20-100 mcg] 1 puff INHALATION Q6H #1 inhaler Transmission Status: Pending to [facility] Apixaban [Eliquis] 5 mg PO BID #60 tab Transmission Status: Pending to [facility] Apixaban [Eliquis] 10 mg PO BID #12 tab Levofloxacin [Levaquin] 500 mg PO DAILY@1100 #3 tab Transmission Status: Pending to [facility] Famotidine [Pepcid] 20 mg PO BID #60 tab Transmission Status: Pending to [facility] predniSONE [Prednisone] 10 mg PO DAILY #30 tab Transmission Status: Pending to [facility] Ascorbic Acid [Vitamin C] 500 mg PO QID #100 tab Transmission Status: Pending to [facility] Zinc Sulfate 220 mg PO DAILY #60 cap Transmission Status: Pending to [facility] Complete Home Medications List: Complete Home Medication List: aspirin 81 mg tablet,delayed release 81 mg PO DAILY 05/18/18 Acetaminophen [Tylenol] 650 mg PO Q4H PRN tab 03/15/19 fluoxetine 20 mg tablet 20 mg PO DAILY #90 tab 05/24/19 Apixaban [Eliquis] 5 mg PO BID #60 tab 05/21/20 Apixaban [Eliquis] 10 mg PO BID #12 tab 05/21/20 Ascorbic Acid [Vitamin C] 500 mg PO QID #100 tab 05/21/20 Ergocalciferol [Calciferol] 50,000 units PO Q7D #14 tab 05/21/20 FLUoxetine HCL [Prozac] 20 mg PO DAILY cap 05/21/20 Famotidine [Pepcid] 20 mg PO BID #60 tab 05/21/20 Ipratropium/Albuterol Sulfate [Combivent Respimat 20-100 mcg] 1 puff INHALATION Q6H #1 inhaler 05/21/20 Levofloxacin [Levaquin] 500 mg PO DAILY@1100 #3 tab 05/21/20 Zinc Sulfate 220 mg PO DAILY #60 cap 05/21/20 predniSONE [Prednisone] 10 mg PO DAILY #30 tab 05/21/20
[2020-05-21 14:07] VITALS: BP 128/78
== END 2020-05-21 14:15 | disposition home or self-care (01) | DRG 177 ==
LOC: ER 20:45 → MS 05-17 00:38
PROVIDERS: ADMIT Internal Medicine; ATTEND Family Medicine
DX: K59.01 Slow transit constipation; I47.1 Supraventricular tachycardia; R07.9 Chest pain, unspecified; I45.10 Unspecified right bundle-branch block; Z86.73 Personal history of transient ischemic attack (TIA), and cerebral infarction without residual deficits; U07.1 COVID-19; R79.89 Other specified abnormal findings of blood chemistry; I26.94 Multiple subsegmental thrombotic pulmonary emboli without acute cor pulmonale